=== PATIENT | female | born 1985 | race Caucasian/White ===

== ENCOUNTER 2023-09-10 20:12 | Emergency (ER) | payer BC ==
[~2023-09-10] VITALS: Ht 170.2 cm; Wt 69.2 kg
[2023-09-10 20:33] VITALS: BP 138/89; PULSE 80; RESP 14; TEMP 97; O2SAT 97
[2023-09-10] MEDS: TETanus/Pertussis (Acell)/Diphther VAC/PF (Tdap-Adult) 0.5ml syringe IMVAC ONE (20:50)
[2023-09-10] MEDS: bacitracin 15gm ointment TP ONE (21:21)
[2023-09-10] MEDS: LIDOCAINE 1%/EPI 1:100,000 inj. 10 ML multi-dose vial SQ ONE (21:21)
== END 2023-09-10 21:23 | disposition home or self-care (01) ==
LOC: ER 20:14
DX: S61.211A Laceration without foreign body of left index finger without damage to nail, initial encounter (principal); W25.XXXA Contact with sharp glass, initial encounter; Y93.89 Activity, other specified; Y92.89 Other specified places as the place of occurrence of the external cause; Y99.8 Other external cause status
CPT/HCPCS: 12001; 73130; 99283; J3490; J7030; 90715; A6449